=== PATIENT | male | born 1990 | race Caucasian/White ===

== ENCOUNTER 2016-10-27 09:02 | Emergency (ER) | payer BC ==
[2016-10-27 09:16] VITALS: BP 126/75
--- NOTE | 2016-10-27 09:25 | EDM.PDOC ---
ED HPI GENERAL MEDICAL PROBLEM - General Chief Complaint: ENT Problem Stated Complaint: HARD TO SWOLLOW Time Seen by Provider: 10/27/16 09:25 Source of Information: Reports: Patient History Limitations: Reports: No Limitations - History of Present Illness INITIAL COMMENTS - FREE TEXT/NARRATIVE: 26-year-old male presents to the ED with a history of lump in his throat and hard to swallow. He's never had a sore throat however. Symptoms seem to start last Thursday and have gotten a little worse over the last 2 days. He is aware of a postnasal drip and need to cough for both his nose fairly often but usually first thing in the mornings. Is also smoker half pack per day. I believe he is apprehensive because of the smoking. No fever or chills. He's never develop true laryngitis during this timeframe. Objectively feels pain and a lump around his thyroid cartilage. Onset: Gradual Onset Date: 10/20/16 Duration: Day(s): Location: Reports: Neck (Throat) Quality: Reports: Other Severity: Moderate (Feels a pressure sensation or like there is a lump in his throat.) Improves with: Reports: None Worsens with: Reports: Other (With coughing and clearing his throat.) Context: Denies: Activity, Exercise, Lifting, Sick Contact, Other Associated Symptoms: Reports: Cough. Denies: No Other Symptoms, Confusion ( Mild cough), Chest Pain, cough w sputum, Diaphoresis, Fever/Chills, Headaches, Loss of Appetite, Malaise, Nausea/Vomiting, Rash, Seizure, Shortness of Breath, Syncope Treatments [employer]: Reports: Other (see below) (None.) Throat Pain Score (Numeric/FACES): 0 - Related Data Allergies Allergy/AdvReac Type Severity Reaction Status Date / Time No Known Allergies Allergy Verified 10/27/16 09:13 Home Meds: Home Meds Amoxicillin/Potassium Clav [Augmentin 500-125 Tablet] 1 each PO BID #16 tablet 10/27/16 [Rx] Loratadine/Pseudoephedrine [Claritin-D 24 Hour Tablet] 1 each PO DAILY #5 tab.er.24h 10/27/16 [Rx] Past Medical History - Past Health History Medical/Surgical History: Denies Medical/Surgical History Social & Family History - Family History Family Medical History: Noncontributory - Tobacco Use Smoking Status *Q: Current Every Day Smoker Years of Tobacco use: 7 Packs/Tins Daily: 0.5 - Caffeine Use Caffeine Use: Reports: Energy Drinks, Soda - Recreational Drug Use Recreational Drug Use: No - Living Situation & Occupation Living situation: Reports: Occupation: Employed ED ROS ENT - Review of Systems Review Of Systems: See Below Constitutional: Denies: Fever, Chills, Malaise, Weakness, Decreased Appetite HEENT: Reports: Rhinitis, Sinus Problem (Postnasal drip), Throat Swelling ( Feeling of a lump in his throat.). Denies: Throat Pain Respiratory: Reports: Cough (Mild chronic cough smokes one half pack cigarettes per day.) Cardiovascular: Reports: No Symptoms Endocrine: Reports: No Symptoms GI/Abdominal: Reports: No Symptoms : Reports: No Symptoms ED EXAM, ENT - Physical Exam Exam: See Below Exam Limited By: No Limitations General Appearance: Alert, WD/WN, Anxious, Mild Distress Eye Exam: Bilateral Eye: Normal Inspection Ears: Normal TMs Nose: Other (Has inflammation of the turbinates bilaterally with some green East mucus in both naris.) Mouth/Throat: Pharyngeal Erythema (Diffuse pharyngeal erythema with swelling of wall Dyers ring. There is evidence of postnasal drip. He has a normal-sized tonsils without erythema and agree on the right tonsil. Not a true accident.). No: Hoarse Voice, Lip Swelling, Lip Ulcers, Muffled Voice, Tonsillar Swelling, Trismus, Uvular Edema Neck: Normal Inspection, Supple, Non-Tender, Full Range of Motion, Other. No: Lymphadenopathy (L), Lymphadenopathy (R), Thyromegaly Respiratory/Chest: No Respiratory Distress (Normal laryngeal crepitus.), Lungs Clear, Normal Breath Sounds, No Accessory Muscle Use Course - Vital Signs Last Recorded V/S: Last Vital Signs Temp 36.7 C 10/27/16 09:13 Pulse 67 10/27/16 09:13 Resp 14 10/27/16 09:13 BP 126/75 10/27/16 09:13 Pulse Ox 100 10/27/16 09:13 - Radiology Interpretation Free Text/Narrative:: 26-year-old male presents to the ED with a feeling of a lump in his throat for the better part of a week. He is somewhat apprehensive as he smokes cigarettes and is concerned he may have developed cancer. By history he has a postnasal drip and does cough frequently. Also clearing his throat fairly often. Examination reveals evidence of sinusitis with postnasal drip and marked swelling of the posterior oropharynx experimental welder's ring. The tonsils themselves are normal. Normal laryngeal crepitus. There is no cervical lymphadenopathy. Thyroid gland is not palpable. I suspect a lump in his throat is due to forceful voice clearing repeatedly secondary to postnasal drip. Discussed trying really hard not to do this. We'll place him on Augmentin 500 mg twice daily for 8 days to clear up sinusitis and postnasal drip in combination with Claritin-D 24-hour release once daily every morning for the next 5 days. For review in 7 days time if not markedly improved. Departure - Departure Time of Disposition: 09:47 Disposition: Home, Self-Care 01 Condition: Fair Clinical Impression: Postnasal drip Sinusitis, acute Qualifiers: Sinusitis location: pansinusitis Recurrence: not specified as recurrent Qualified Code(s): J01.40 - Acute pansinusitis, unspecified - Discharge Information Prescriptions: Amoxicillin/Potassium Clav [Augmentin 500-125 Tablet] 1 each PO BID #16 tablet Loratadine/Pseudoephedrine [Claritin-D 24 Hour Tablet] 1 each PO DAILY #5 tab.er.24h Instructions: Sinusitis, Adult, [id number] Referrals: Hakeem Wilder MD [Primary Care Provider] - Forms: ED Department Discharge Additional Instructions: Evaluation in the emergency department today in regards to pressure lump sensation in her throat that started last Thursday and seems to be worse over the last 48 hours. On examination there is evidence of sinusitis with postnasal drip causing marked inflammation of the back of your throat. The lymph nodes in the back of the throat called while buyers ring or inflamed. No true evidence of tonsillitis. There is no masses in the neck on palpation with normal laryngeal crepitus and Reglan being normal. The lump you feel in your throat is your is secondary to inflammation around the vocal cords and tissues above this the subglottis. This is due to inflammation from the postnasal drip. Try really hard not to clear her throat excessively as this continues to cause a little feeling of lump in the throat. Treatment is antibiotic Augmentin 500 mg twice daily for the next 8 days to clear up infection. Claritin-D 24-hour release 1 tablet every morning for the next 5 consecutive days to act as a decongestant and reduce the swelling in the throat. Try and drink plenty of warm fluids to soothe this area or soup etc. Follow-up if not completely back to normal in 7 days time.
== END 2016-10-27 10:05 | disposition home or self-care (01) ==
LOC: JD.ED 09:02
DX: R09.82 Postnasal drip (principal); J01.40 Acute pansinusitis, unspecified; F17.210 Nicotine dependence, cigarettes, uncomplicated; Z79.899 Other long term (current) drug therapy
CPT/HCPCS: 99283; 99284

== ENCOUNTER 2021-01-02 16:09 | Emergency (ER) | payer BC, OTHER ==
[2021-01-02 17:39] VITALS: BP 135/78; PULSE 84
--- NOTE | 2021-01-02 20:39 | EDM.PDOC ---
ED HPI GENERAL MEDICAL PROBLEM - General Chief Complaint: Lower Extremity Injury/Pain Stated Complaint: L ANKLE INJURY Time Seen by Provider: 01/02/21 19:38 Source of Information: Reports: Patient, RN Notes Reviewed History Limitations: Reports: No Limitations - History of Present Illness INITIAL COMMENTS - FREE TEXT/NARRATIVE: Patient is a 30-year-old male presenting to the emergency department with complaints of pain and swelling to his left ankle and medial aspect of his foot after miss stepping off of a skid steer earlier in the day. Patient reports he has been able to walk on it, however it is painful. He must walk on his heel in order for it to be tolerable. Denies any previous injuries to this extremity. Left Ankle Pain Score (Numeric/FACES): 8 - Related Data Allergies Allergy/AdvReac Type Severity Reaction Status Date / Time No Known Allergies Allergy Verified 01/02/21 17:39 Past Medical History - Past Health History Medical/Surgical History: Denies Medical/Surgical History HEENT History: Reports: Impaired Vision Other Musculoskeletal History: fractured R ankle Social & Family History - Family History Family Medical History: No Pertinent Family History - Tobacco Use Tobacco Use Status *Q: Current Every Day Tobacco User Years of Tobacco use: 10 Packs/Tins Daily: 1 Used Tobacco, but Quit: No - Caffeine Use Caffeine Use: Reports: Energy Drinks - Recreational Drug Use Recreational Drug Use: No - Living Situation & Occupation Living situation: Reports: Occupation: Employed Review of Systems - Review of Systems Review Of Systems: Comprehensive ROS is negative, except as noted in HPI. ED EXAM, GENERAL - Physical Exam Exam: See Below Exam Limited By: No Limitations General Appearance: Alert, WD/WN, No Apparent Distress Respiratory/Chest: No Respiratory Distress, Lungs Clear, Normal Breath Sounds, No Accessory Muscle Use, Chest Non-Tender Cardiovascular: Normal Peripheral Pulses, Regular Rate, Rhythm, No Edema, No Gallop, No JVD, No Murmur, No Rub Extremities: Other (Swelling and tenderness to palpation to he lateral malleolus of the left ankle. Mild tenderness to palpation to the medial aspect of the left foot. No ecchymosis or obvious deformity. CMS intact.) Neurological: Alert, Oriented, CN II-XII Intact, Normal Cognition, Normal Reflexes, No Motor/Sensory Deficits Psychiatric: Normal Affect, Normal Mood Skin Exam: Warm, Dry, Intact, Normal Color, No Rash Course - Vital Signs Last Recorded V/S: Last Vital Signs Temp 98.1 F 01/02/21 17:35 Pulse 84 01/02/21 17:35 Resp 16 01/02/21 17:35 BP 135/78 01/02/21 17:35 Pulse Ox 99 01/02/21 17:35 - Re-Assessments/Exams Free Text/Narrative Re-Assessment/Exam: Patient is a 30-year-old male presenting to the emergency department complaints of pain and swelling to his left foot and ankle after miss stepping off of a skid steer. Complains of tenderness to palpation and pain to the medial aspect of his left foot as well as the lateral aspect of the ankle. Have ordered foot and ankle x-rays. 01/02/21 20:36 X-ray of the left foot and ankle show no bony abnormalities. Patient is likely sprained ligaments. I will provide him with a walking boot and note for work. Discharge instructions as documented. Departure - Departure Time of Disposition: 20:38 Disposition: Home, Self-Care 01 Condition: Good Clinical Impression: Ankle sprain Qualifiers: Encounter type: initial encounter Involved ligament of ankle: unspecified ligament Laterality: left Qualified Code(s): S93.402A - Sprain of unspecified ligament of left ankle, initial encounter - Discharge Information *PRESCRIPTION DRUG MONITORING PROGRAM REVIEWED*: No *COPY OF PRESCRIPTION DRUG MONITORING REPORT IN PATIENT BALDO: No Instructions: Ankle Sprain, [id number] Referrals: PCP,None [Primary Care Provider] - Forms: ED Department Discharge, ED Return to Work/School Form Additional Instructions: Wear walking boot when up and moving. Ice and elevate the extremity at rest. Use Tylenol and ibuprofen as needed for discomfort. If you are not experiencing significant provement in 1 week, recommend follow-up in the clinic. Return to ER as needed. Sepsis Event Note (ED) - Evaluation Sepsis Screening Result: No Definite Risk
--- NOTE | 2021-01-03 06:37 | CR ---
Left ankle: 2 views of the left ankle were obtained. Comparison: No prior ankle study is available. Soft tissue swelling is noted. Ankle mortise is symmetric. No fracture, dislocation or other bony abnormality is appreciated. Impression: 1. Soft tissue swelling. 2. No bony abnormality is appreciated. Diagnostic code #2
--- NOTE | 2021-01-03 06:39 | CR ---
Left foot: 3 views of the left foot were obtained. Comparison: No prior foot study is available. Joint spaces are maintained. No acute fracture, dislocation or other bony abnormality is seen. Impression: 1. Nothing acute is seen on left foot exam. Diagnostic code #1
== END 2021-01-02 20:50 | disposition home or self-care (01) ==
LOC: JD.ED 16:09
DX: S93.402A Sprain of unspecified ligament of left ankle, initial encounter (principal); Z72.0 Tobacco use; W17.89XA Other fall from one level to another, initial encounter; Y99.0 Civilian activity done for income or pay
CPT/HCPCS: 73600-26-LT; 73600-LT; 73630-26-LT; 73630-LT; 99283-25

== ENCOUNTER 2024-02-29 15:20 | Emergency (ER) | payer OTHER, BC ==
[2024-02-29] MEDS: Diphtheria,Pertussis(Acell),Tetanus Vaccine 0.5 ML Syringe IM ONE (17:18)
[2024-02-29 19:46] VITALS: BP 152/80; PULSE 85
== END 2024-02-29 17:20 | disposition home or self-care (01) ==
LOC: JD.ED 15:20
DX: S01.81XA Laceration without foreign body of other part of head, initial encounter (principal); Z23 Encounter for immunization; X50.9XXA Other and unspecified overexertion or strenuous movements or postures, initial encounter
CPT/HCPCS: 12011; 90471; 90715; 99282-25